=== PATIENT | male | born 1970 | race Caucasian/White ===

== ENCOUNTER 2016-11-28 09:33 | Emergency (ER) | payer SELFPAY ==
[~2016-11-28] VITALS: Wt 88.0 kg
[2016-11-28] MEDS ORDERED: LIDOCAINE 2% (MDV) 20 ML INJ INJ ONE (11:30)
[2016-11-28] MEDS ORDERED: CEPH-443 PO (12:20)
[2016-11-28] MEDS ORDERED: BACTDS PO (12:21)
[2016-11-28] MEDS ORDERED: HYDR-906 PO (12:21)
[2016-11-28] MEDS ORDERED: IBUP-1542 PO (12:21)
--- NOTE | 2016-11-28 12:33 | ERD ---
ER Documentation Chief Complaint Date/Time DATE: 11/28/16 TIME: 12:30 Chief Complaint abscess to right buttocks for the past 2 days. no fevers. HPI This is a 47-year-old male presents to the ER with an abscess to his right buttocks. Patient noticed this 2 days ago. He has had fevers at home he denies any chills. Patient denies any other symptoms. His daughter also has an abscess. Patient states that pain is severe pressure-like it radiates up to his back. He has not tried anything for the pain. He rates his pain as 9 out of 10. ROS 12 point review of systems was done, all negative except per HPI. Medications Home Meds Active Scripts Ibuprofen* (Motrin*) 600 Mg Tab, 600 MG PO Q6, #30 TAB Prov:KATE,JAYA C 11/28/16 Hydrocodone/Acetaminophen (Turner 5-325 Tablet) 1 Each Tablet, 1 TAB PO Q6H Y for PAIN, #20 TAB Prov:KATEJAYA LOPEZ C 11/28/16 Sulfamethoxazole-Trimethoprim* (Bactrim* DS) 800-160 Mg Tab, 1 TAB PO BID for 7 Days, TAB Prov:KATE,JAYA C 11/28/16 Cephalexin* (Keflex*) 500 Mg Capsule, 500 MG PO QID for 7 Days, CAP Prov:KATEJAYA C 11/28/16 Allergies Allergies: Coded Allergies: No Known Allergy (Unverified , 11/28/16) PMhx/Soc Medical and Surgical Hx: pt denies Medical Hx, pt denies Surgical Hx History of Surgery: No Anesthesia Reaction: No Hx Neurological Disorder: No Hx Respiratory Disorders: No Hx Cardiac Disorders: No Hx Psychiatric Problems: No Hx Miscellaneous Medical Probl: No Hx Alcohol Use: No Hx Substance Use: No Hx Tobacco Use: No Smoking Status: Never smoker Physical Exam Vitals Vital Signs Date Time Temp Pulse Resp B/P Pulse Ox O2 Delivery O2 Flow Rate FiO2 11/28/16 09:35 98.9 102 21 155/88 98 Physical Exam GENERAL: The patient is well developed and appropriate for usual state of health , in no apparent distress. HEENT: Atraumatic. CHEST: Clear to auscultation bilaterally. There are no rales, wheezes or rhonchi. HEART: Regular rate and rhythm. No murmurs, clicks, rubs or gallops. NEURO: Alert and oriented. SKIN: 4cm *3cm fluctuant mass on the right inner buttock Results 24 hrs Current Medications Medications (Trade) Dose Ordered Sig/Anju Route PRN Reason Start Time Stop Time Status Last Admin Dose Admin Lidocaine (Xylocaine 2% (Mdv) 20 ml) 20 ml ONCE ONCE INJ 11/28/16 11:30 11/28/16 11:31 DC Procedures/MDM Abscess Incision and Drainage with irrigation by me: Location: right inner buttock Anesthesia: [Local 1% Lidocaine] Technique: Irrigated. Disrupted loculations w/ instrumentation. Copious amounts of yellow/brown discharge came out. Packin inch iodoform Complications: Neurovascularly intact post procedure 48 hour wound check. Scar minimization instructions given. Patient's skin symptoms have stabilized while they have been evaluated in the department and are appropriate for outpatient care and work up. Exam and w/u not consistent w/ sepsis, deep space infection, or foreign body. Departure Diagnosis: Primary Impression: Abscess Condition: Stable Patient Instructions: Abscess, Incision And Drainage Additional Instructions: Call your primary care doctor TOMORROW for an appointment during the next 1-2 days.See the doctor sooner or return here if your condition worsens before your appointment time. [facility] [address] [facility]! JAYA LOVE Nov 28, 2016 12:33
== END 2016-11-28 12:35 | disposition home or self-care (01) ==
LOC: EDBD → FTE 09:33
DX: L02.31 Cutaneous abscess of buttock (principal)

== ENCOUNTER 2016-11-30 07:25 | Emergency (ER) | payer SELFPAY ==
[~2016-11-30] VITALS: Wt 89.0 kg
[~2016-11-30 07:25] MED LIST: BACTDS PO; CEPH-443 PO; HYDR-906 PO; IBUP-1542 PO
--- NOTE | 2016-11-30 08:42 | ERD ---
ER Documentation Chief Complaint Date/Time DATE: 11/30/16 TIME: 08:39 Chief Complaint 2 day wouncd check from an abcess . no new complaints. HPI 46-year-old male here for 2 day recheck after incision and drainage of his abscess in the buttocks. Patient stated that he is doing well, pain has significantly decreased. The packing came out yesterday while he was doing dressing change. Denies fever or chills. ROS All systems reviewed and are negative except as per history of present illness. Medications Home Meds Active Scripts Ibuprofen* (Motrin*) 600 Mg Tab, 600 MG PO Q6, #30 TAB Prov:KATE,JAYA C 11/28/16 Hydrocodone/Acetaminophen ([place] 5-325 Tablet) 1 Each Tablet, 1 TAB PO Q6H Y for PAIN, #20 TAB Prov:KATE,JAYA C 11/28/16 Sulfamethoxazole-Trimethoprim* (Bactrim* DS) 800-160 Mg Tab, 1 TAB PO BID for 7 Days, TAB Prov:KATEJAYA C 11/28/16 Cephalexin* (Keflex*) 500 Mg Capsule, 500 MG PO QID for 7 Days, CAP Prov:KATE,JAYA C 11/28/16 Allergies Allergies: Coded Allergies: No Known Allergy (Unverified , 11/28/16) PMhx/Soc Medical and Surgical Hx: pt denies Medical Hx History of Surgery: No Anesthesia Reaction: No Hx Neurological Disorder: No Hx Respiratory Disorders: No Hx Cardiac Disorders: No Hx Psychiatric Problems: No Hx Miscellaneous Medical Probl: No Hx Alcohol Use: No Hx Substance Use: No Hx Tobacco Use: No Physical Exam Vitals Vital Signs Date Time Temp Pulse Resp B/P Pulse Ox O2 Delivery O2 Flow Rate FiO2 11/30/16 07:29 98.0 80 21 144/84 99 Physical Exam General impression: Well-developed, well-nourished. Alert, oriented, in no acute distress Head: Normocephalic, atraumatic. Respiration: Normal respiratory effort. Lungs clear to auscultate bilaterally. No wheezes, rales or rhonchi. Cardiovascular: Regular rate and rhythm. No murmurs or extra heart sounds. Abdomen: Abdomen normal to inspection. Nontender. No masses or organomegaly. Bowel sounds normal. Back: Normal to inspection. No midline spine tenderness. No CVA tenderness. Extremities: Extremities normal to inspection, nontender. ROM normal. Neuro: Mental status normal, speech normal. [employer] grossly intact. Skin: Normal turgor. No rash or lesions. Psych: Normal mood and affect. Procedures/MDM Wound shows no evidence of infection, foreign body, neurologic injury, vascular injury. Patient appropriate for outpatient follow up. Patient appears well, stable for discharge and outpatient management. Medical decision making shared with patient and family. Education provided to patient and family. Patient and family expressed understanding of the plan. Medications on discharge: None. Follow-up: Primary care provider in 2-3 days or return to ED if worse. Departure Diagnosis: Primary Impression: Encounter for wound re-check Condition: Good Patient Instructions: Wound Check, Lac F/U (No Infection) Referrals: DOCTOR,NOT ON STAFF (PCP) [facility] YOU HAVE RECEIVED A MEDICAL SCREENING EXAM AND THE RESULTS INDICATE THAT YOU DO NOT HAVE A CONDITION THAT REQUIRES URGENT TREATMENT IN THE EMERGENCY DEPARTMENT. FURTHER EVALUATION AND TREATMENT OF YOUR CONDITION CAN WAIT UNTIL YOU ARE SEEN IN YOUR DOCTORS OFFICE WITHIN THE NEXT 1-2 DAYS. IT IS YOUR RESPONSIBILITY TO MAKE AN APPOINTMENT FOR FOLOW-UP CARE. IF YOU HAVE A PRIMARY DOCTOR --you should call your primary doctor and schedule an appointment IF YOU DO NOT HAVE A PRIMARY DOCTOR YOU CAN CALL OUR PHYSICIAN REFERRAL HOTLINE AT IF YOU CAN NOT AFFORD TO SEE A PHYSICIAN YOU CAN CHOSE FROM THE FOLLOWING [facility] [address] [facility] [facility] [address] [facility] [facility] [address] [facility] [facility] [address] [facility]. [facility] [address] [facility]. [facility]. [address] Additional Instructions: Finish the antibiotics given to you. Call your primary care doctor TOMORROW for an appointment during the next 2-3 days.See the doctor sooner or return here if your condition worsens before your appointment time. PJ SUMMERS NP Nov 30, 2016 08:42
== END 2016-11-30 08:30 | disposition home or self-care (01) ==
LOC: FTE 07:25
DX: Z48.01 Encounter for change or removal of surgical wound dressing (principal)
CPT/HCPCS: 99281